=== PATIENT | female | born 1955 | race Hispanic/Latino ===

== ENCOUNTER 2018-04-03 08:22 | Outpatient (CLI) | payer BC | END 2018-04-03 08:23 | disposition home or self-care (01) | LOC: BICMAMMO 08:22 | PROVIDERS: ATTEND Internal Medicine Hematology & Oncology | DX: Z12.31 Encounter for screening mammogram for malignant neoplasm of breast (principal); Z80.3 Family history of malignant neoplasm of breast; Z85.3 Personal history of malignant neoplasm of breast | CPT/HCPCS: 77063; 77067 ==

== ENCOUNTER 2018-06-01 14:53 | Outpatient (CLI) | payer BC ==
--- NOTE | 2018-06-01 16:11 | BD ---
DEXA BONE DENSITOMETRY: (Dual energy X-ray Absorptiometry) 06/01/18 HISTORY: 62-year-old postmenopausal female for age-related osteoporosis screening examination. Ht. 60 inches. Wt. 133 lb. Age of menopause: 47 years. COMPARISON: None available. FINDINGS: The bone mineral density (BMD) is given in grams per square centimeter (g/cm2): LUMBAR SPINE: BMD(g/cm2) T-score Z-score L1: 0.790 -1.8 -0.3 L2: 0.810 -2.0 -0.3 L3: 0.853 -2.1 -0.3 L4: 0.813 -2.3 -0.4 Total: 0.818 -2.1 -0.4 HIP: Femoral neck: 0.721 -1.2 0.1 Total: 0.961 0.2 1.1 FRAX WHO Fracture Risk Assessment Tool: 10 Year Fracture Risk * Major osteoporotic fracture: 4.5% Hip fracture: 0.3% Reported Risk Factors: US(), Neck BMD= 0.721, BMI=26.0 * Fracture probability is calculated for an untreated patient. Fracture probability may be lower if the patient has received treatment. IMPRESSION: 1) The mean bone mineral density of the lumbar spine is osteopenic. Fracture risk is increased. 2) The bone mineral density of the femoral neck is osteopenic. Fracture risk is increased. NEVA Kiran POS: MIRNA
== END 2018-06-01 14:54 | disposition home or self-care (01) ==
LOC: BICMAMMO 14:53
PROVIDERS: ATTEND Internal Medicine
DX: M85.89 Other specified disorders of bone density and structure, multiple sites (principal)
CPT/HCPCS: 77080

== ENCOUNTER 2019-04-05 15:27 | Outpatient (CLI) | payer BC ==
--- NOTE | 2019-04-05 17:04 | MMO ---
Bilateral MAMMO Bilat Screen [facility]. CLINICAL HISTORY: Patient is 63 years old and is seen for screening. The patient has the following family history of breast cancer: sister, at age 49, metastatic cancer to the breast. 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 VIEWS: The views performed were: bilateral craniocaudal with tomosynthesis and bilateral mediolateral oblique with tomosynthesis. FILMS COMPARED: The present examination has been compared to prior imaging studies performed at [facility] on 04/03/2018, and at [facility] on 02/13/2014, 08/19/2014 and 02/12/2015. This study has been interpreted with the assistance of computer-aided detection. MAMMOGRAM FINDINGS: The breasts are heterogeneously dense, which could obscure a lesion on mammography. Finding 1: There are stable benign appearing calcifications seen in both breasts. Finding 2: There is a stable post-surgical scar seen in the left breast. There are no suspicious masses, suspicious calcifications, or new areas of architectural distortion. IMPRESSION: THERE IS NO MAMMOGRAPHIC EVIDENCE OF MALIGNANCY. A ROUTINE FOLLOW-UP MAMMOGRAM IN 1 YEAR IS RECOMMENDED. THE RESULTS OF THIS EXAM WERE SENT TO THE PATIENT. ACR BI-RADS Category 2 - Benign finding MAMMOGRAPHY NOTE: 1. A negative mammogram report should not delay a biopsy if a dominant of clinically suspicious mass is present. 2. Approximately 10% to 15% of breast cancers are not detected by mammography. 3. Adenosis and dense breasts may obscure an underlying neoplasm. Reported by: JAK MCLEOD MD Electonically Signed: [id number]
== END 2019-04-05 15:28 | disposition home or self-care (01) ==
LOC: BICMAMMO 15:27
PROVIDERS: ATTEND Internal Medicine Hematology & Oncology
DX: Z12.31 Encounter for screening mammogram for malignant neoplasm of breast (principal); Z85.3 Personal history of malignant neoplasm of breast; Z80.3 Family history of malignant neoplasm of breast
CPT/HCPCS: 77063; 77067

== ENCOUNTER 2020-04-07 16:05 | Outpatient (CLI) | payer BC ==
--- NOTE | 2020-04-08 08:25 | MMO ---
Bilateral MAMMO Bilat Screen [facility]. CLINICAL HISTORY: Patient is 64 years old and is seen for screening. The patient has the following family history of breast cancer: sister, at age 49, metastatic cancer to the breast. The patient has a history of metastatic cancer to the breast in the left breast in 2012. The patient has a history of left Lumpectomy in 2012 - malignant. VIEWS: The views performed were: bilateral craniocaudal with tomosynthesis and bilateral mediolateral oblique with tomosynthesis. FILMS COMPARED: The present examination has been compared to prior imaging studies performed at [facility] on 04/03/2018 and 04/05/2019, and at [facility] on 08/19/2014 and 02/12/2015. This study has been interpreted with the assistance of computer-aided detection. MAMMOGRAM FINDINGS: The breasts are heterogeneously dense, which could obscure a lesion on mammography. Finding 1: There are stable benign appearing calcifications seen in both breasts. Finding 2: There are stable post operative changes seen in the left breast. There are no suspicious masses, suspicious calcifications, or new areas of architectural distortion. IMPRESSION: THERE IS NO MAMMOGRAPHIC EVIDENCE OF MALIGNANCY. A ROUTINE FOLLOW-UP MAMMOGRAM IN 1 YEAR IS RECOMMENDED. THE RESULTS OF THIS EXAM WERE SENT TO THE PATIENT. ACR BI-RADS Category 2 - Benign finding MAMMOGRAPHY NOTE: 1. A negative mammogram report should not delay a biopsy if a dominant of clinically suspicious mass is present. 2. Approximately 10% to 15% of breast cancers are not detected by mammography. 3. Adenosis and dense breasts may obscure an underlying neoplasm. Reported by: DAGMAR GOODRICH MD Electonically Signed: [id number]
== END 2020-04-07 16:06 | disposition home or self-care (01) ==
LOC: BICMAMMO 16:05
PROVIDERS: ATTEND Internal Medicine Hematology & Oncology
DX: Z12.31 Encounter for screening mammogram for malignant neoplasm of breast (principal); Z80.3 Family history of malignant neoplasm of breast; Z85.3 Personal history of malignant neoplasm of breast; Z98.890 Other specified postprocedural states
CPT/HCPCS: 77063; 77067

== ENCOUNTER 2020-11-10 11:34 | Outpatient (CLI) | payer BC | END 2020-11-10 11:35 | disposition home or self-care (01) | LOC: BICRAD 11:34 | PROVIDERS: ATTEND Internal Medicine | DX: M25.562 Pain in left knee (principal) ==

== ENCOUNTER 2021-04-08 15:54 | Outpatient (CLI) | payer BC | END 2021-04-08 15:55 | disposition home or self-care (01) | LOC: BICMAMMO 15:54 | PROVIDERS: ATTEND Internal Medicine Hematology & Oncology | DX: Z12.31 Encounter for screening mammogram for malignant neoplasm of breast (principal); Z80.3 Family history of malignant neoplasm of breast; Z85.3 Personal history of malignant neoplasm of breast; Z98.890 Other specified postprocedural states | CPT/HCPCS: 77063; 77067 ==

== ENCOUNTER 2021-12-28 14:33 | Outpatient (CLI) | payer BC | END 2021-12-28 14:34 | disposition home or self-care (01) | LOC: SCSMRI 14:33 | PROVIDERS: ATTEND Internal Medicine | DX: M25.462 Effusion, left knee (principal); M25.562 Pain in left knee; S83.242A Other tear of medial meniscus, current injury, left knee, initial encounter; M94.262 Chondromalacia, left knee; M71.22 Synovial cyst of popliteal space [Baker], left knee ==

== ENCOUNTER 2024-06-13 12:36 | Outpatient (CLI) | payer BC | END 2024-06-13 12:37 | disposition home or self-care (01) | LOC: BICMAMMO 12:36 | PROVIDERS: ATTEND Internal Medicine | DX: Z12.31 Encounter for screening mammogram for malignant neoplasm of breast (principal); Z80.3 Family history of malignant neoplasm of breast; Z85.3 Personal history of malignant neoplasm of breast; Z98.890 Other specified postprocedural states | CPT/HCPCS: 77063; 77067 ==